=== PATIENT | female | born 1970 | race Caucasian/White ===

== ENCOUNTER 2020-12-24 06:25 | Day surgery (SDC) | payer OTHER ==
[~2020-12-24] VITALS: Ht 157.5 cm; Wt 69.1 kg
--- NOTE | ~2020-12-24 | OR ---
[facility] [address], [place] [address] Draft DATE OF OPERATION: 12/24/2020 SURGEON: Chi Kamara DO PREOPERATIVE DIAGNOSES: 1. Abnormal uterine bleeding. 2. Large uterine mass. POSTOPERATIVE DIAGNOSES: 1. Abnormal uterine bleeding. 2. Large enlarged uterine mass. 3. Endometrial polyps. PROCEDURES PERFORMED: 1. Dilation and curettage. 2. Hysteroscopic polypectomy. ANESTHESIA: General with LMA. ESTIMATED BLOOD LOSS: 30 mL. SPECIMENS: Endometrial curettings and endometrial polyp. FINDINGS: Normal external genitalia with no pelvic or inguinal lymphadenopathy or masses. Uterus grossly enlarged at the level of umbilicus with irregular contour. On hysteroscopy, normal appearing cervix and cervical canal. Uterine cavity distorted by myometrial mass within endometrium, scattered endometrial polyps, however, the myometrial mask was not able to be adequately biopsied. Hemostasis procedure. COMPLICATIONS: None. INDICATIONS: Ms. Sharma is a pleasant 50-year-old, G3, P3, premenopausal female, who presents with 3-year history of worsening abnormal uterine bleeding. She was initially treated with contraceptive patch by another physician with minimal improvement. Symptoms have PATIENT NAME: DELL SHARMA OPERATIVE REPORT DATE OF : 66 REPORT #: [id number] PHYSICIAN: CHI KAMARA DO PCP: YAKOV GARCIA MD REPORT IS CONFIDENTIAL AND NOT TO BE RELEASED WITHOUT AUTHORIZATION [facility] [address], [place] [address] Draft continued to worsen past several months. An ultrasound was performed that demonstrated enlarged uterus approximately 20 cm with concerning endometrial or uterine mass. The mass appears intracavitary. Recommended hysteroscopy and D and C. Risks, benefits, and alternatives were discussed in detail with the patient. The patient understands and wishes to proceed with the procedure. TECHNIQUE: The patient was taken to the operating room where a time-out was performed to confirm correct patient and correct procedure. General anesthesia was adequately established. The patient was prepped and draped in the dorsal lithotomy position with her feet in Yellofin stirrups. ICPs were on a running and no preoperative antibiotics or heparin were indicated. The patient was typed and screened preoperatively. Lili retractors were used to retract the vaginal epithelium and the anterior lip of the cervix was grasped with Allis clamp. The cervix was gently dilated using Hegar dilators and an operative hysteroscope was then placed under direct visualization. The cervical os then advanced under direct visualization into the uterine cavity. Endometrial cavity was confirmed by identifying bilateral tubal ostia. Thin endometrium with a few scattered endometrial polyps was identified. The uterine mass is not intracavitary and unable to be adequately biopsied. MyoSure Reach device was selected and endometrial polyps and endometrial curettings were performed. Fluid deficit was noted to be 1500 mL, but no concern for perforation. Decision was made to terminate the procedure. The hysteroscope was removed and Allis clamp was removed. Hemostasis was appreciated. The patient was then taken to the PACU in good and stable condition. Sponge, needle, and instrument counts were correct x2 at the end of the procedure. Final fluid deficit was 1180 mL. Chi Kamara DO JDW/MODL /[id number] Copies: PATIENT NAME: DELL SHARMA OPERATIVE REPORT DATE OF : 66 REPORT #: [id number] PHYSICIAN: CHI KAMARA DO PCP: YAKOV GARCIA MD REPORT IS CONFIDENTIAL AND NOT TO BE RELEASED WITHOUT AUTHORIZATION [address] [address] Draft ~ PATIENT NAME: DELL SHARMA OPERATIVE REPORT DATE OF : 66 REPORT #: [id number] PHYSICIAN: CHI KAMARA DO PCP: YAKOV GARCIA MD REPORT IS CONFIDENTIAL AND NOT TO BE RELEASED WITHOUT AUTHORIZATION
--- NOTE | ~2020-12-24 | OR ---
[facility] [address] [place], [place] [address] Cancelled DATE OF OPERATION: SURGEON: Chi Kamara DO DICTATION CANCELED. Chi Kamara DO JDLizzy/MODL /[id number] Copies: ~ PATIENT NAME: DELL SHARMA OPERATIVE REPORT DATE OF : 66 REPORT #: [id number] PHYSICIAN: CHI KAMARA DO PCP: YAKOV GARCIA MD REPORT IS CONFIDENTIAL AND NOT TO BE RELEASED WITHOUT AUTHORIZATION
[~2020-12-24 06:25] MED LIST: AMITRIPTYLINE H25 MG PO; FOLIC ACID0.8 MG PO; IRON325 M1 PO; VITAMIN B-121000 MCG PO; VITAMIN D325 MCG PO
--- NOTE | 2020-12-24 09:13 | NUR ---
12/24/20 0913 Sheets,Shaila 0905 PT ARRIVED TO PACU ON 8L VIA MASK, PT NONAROUSABLE AND VSS. RESP EVEN AND UNLABORED WITH ORAL AIRWAY IN PLACE.
--- NOTE | 2020-12-24 09:53 | NUR ---
PATIENT BACK TO ROOM FROM PACU ON . RECEIVED REPORT FROM MARIAN BARROSO. PATIENT IS DROWSY. VSS. DENIES PAIN AND NAUSEA. PATIENT HAS A SMALL AMOUNT OF RED DRAINAGE ON THE MADHURI PAD. PATINET IS COLD AND BEAR HUGGER TURNED ON. PROVIDED PATIENT WITH WATER, CRACKERS, AND PUDDING. CALL LIGHT WITHIN REACH.
--- NOTE | 2020-12-24 10:55 | NUR ---
PATIENT AWAKE AND SITTING ON THE SIDE OF THE BED. VSS. DENIES PAIN AND NUASEA. MADHURI PAD HAS SMALL AMOUNT OF RED DRAINAGE. AT BEDSIDE. PATIENT IS READY TO GO HOME. CALL TO DR. HAYES TO COME TALK WITH PATIENT REGARDING SURGICAL RESULTS.
--- NOTE | 2020-12-25 11:16 | PATH ---
[facility] [address] [place], [place] [address] Signed SPECIMEN(S): A ENDOMETRIAL CURETTINGS AND POLYP SPECIMEN SOURCE: A. ENDOMETRIAL CURETTINGS AND POLYP CLINICAL HISTORY: Hysteroscopy DC. Abnormal uterine bleeding, uterine mass. FINAL PATHOLOGIC DIAGNOSIS: Endometrium, curettage: - Benign endometrial polyp. - Background inactive endometrium. - No hyperplasia or neoplasia identified. BRP:cml:C2NR MICROSCOPIC EXAMINATION: Histologic sections of all submitted blocks are examined by light microscopy. These findings, together with the gross examination, support the pathologic diagnosis. GROSS DESCRIPTION: The specimen, labeled "EM, A," and designated on the requisition "endometrial curettings and polyp," is received in formalin and consists of puentes-pink soft tissue fragments with mucus and clot material measuring 3.0 x 2.3 x 0.5 cm in aggregate. Specimen is filtered and entirely submitted in cassette (A1). AT (under the direct supervision of a pathologist) The Gross Description was prepared using a voice recognition system. The report was reviewed for accuracy; however, sound-alike word errors, addition and/or deletions may occur. If there is any question about this report, please contact Client Services. PERFORMING LABORATORY: The technical component was performed by [facility], [address] [place] [id number] (Inclined Railway Operator: Bridget Villegas MD; CLIA# [id number]). [facility], [address] [address] (CLIA# [id number]). Diagnostician: Arpan Gray MD Pathologist PATIENT NAME: DELL SHARMA PATHOLOGY DATE OF : [birth year] REPORT #: [id number] PHYSICIAN: [facility] PATHOLOG[facility] PCP: YAKOV GARCIA MD REPORT IS CONFIDENTIAL AND NOT TO BE RELEASED WITHOUT AUTHORIZATION [address] [address] Signed Electronically Signed 12/25/2020 Copies: ~ PATIENT NAME: DELL SHARAM PATHOLOGY DATE OF : 66 REPORT #: [id number] PHYSICIAN: [facility] PCP: YAKOV GARCIA MD REPORT IS CONFIDENTIAL AND NOT TO BE RELEASED WITHOUT AUTHORIZATION
== END 2020-12-24 11:25 | disposition home or self-care (01) ==
LOC: OPS 06:25 → DS 06:25 → OPS 09:00 → DS 09:15 → OPS 10:45
PROVIDERS: ATTEND Obstetrics & Gynecology
PROC: 0UDB7ZX Extraction of Endometrium, Via Natural or Artificial Opening, Diagnostic (ICD-10-PCS; 2020-12-24)
PROC: 0UB98ZX Excision of Uterus, Via Natural or Artificial Opening Endoscopic, Diagnostic (ICD-10-PCS; principal; 2020-12-24 09:00)
DX: N84.0 Polyp of corpus uteri (principal); G43.909 Migraine, unspecified, not intractable, without status migrainosus; E78.5 Hyperlipidemia, unspecified; Z88.6 Allergy status to analgesic agent; Z88.1 Allergy status to other antibiotic agents; Z88.0 Allergy status to penicillin
CPT/HCPCS: J1100; J2001; J2405; J2704; J3010; J7121

== ENCOUNTER 2021-01-20 08:55 | Inpatient (IN) | payer OTHER ==
[~2021-01-20] VITALS: Ht 157.5 cm; Wt 73.0 kg
--- NOTE | ~2021-01-20 | OR ---
[facility] [address] [place], [place] [address] Draft DATE OF OPERATION: 01/21/2021 SURGEON: Chi Kamara DO PREOPERATIVE DIAGNOSES: 1. Abnormal uterine bleeding. 2. Large fibroid uterus. POSTOPERATIVE DIAGNOSES: 1. Abnormal uterine bleeding. 2. Large fibroid uterus. 3. Significant abdominal and pelvic adhesions. 4. Endometriosis of the uterosacral ligaments bilaterally. PROCEDURES PERFORMED: 1. Total abdominal hysterectomy of a large uterus with multiple fibroids. 2. Bilateral salpingectomy. 3. Cystoscopy. 4. Diagnostic laparoscopy. 5. Extensive lysis of adhesions. ANESTHESIA: General. LIBRARY HELPER: Bryan Rubin MD ESTIMATED BLOOD LOSS: 1000 mL. COMPLICATIONS: None. DRAINS: Velasquez to dependent drainage. FINDINGS: Normal external genitalia with normal clitoris, urethral meatus bilateral Crocker's, and Bartholin's. Normal-appearing cervix. Large multifibroid uterus with the fundus just above the umbilicus with significant pelvic adhesions and endometriosis on diagnostic PATIENT NAME: DELL SHARMA OPERATIVE REPORT DATE OF : 66 REPORT #: [id number] PHYSICIAN: CHI KAMARA DO PCP: YAKOV GARCIA MD REPORT IS CONFIDENTIAL AND NOT TO BE RELEASED WITHOUT AUTHORIZATION [facility] [address], [place] [address] Draft laparoscopy. On laparotomy, again large multifibroid uterus, hemostatic at the end of the procedure. Normal bilateral ovaries. On cystoscopy, normal bladder dome and bilateral ureteral jets. There was a small bladder polyp in the midportion of the bladder that is benign appearing. INDICATIONS: Ms. Sharma is a pleasant 50-year-old female, who presented with abnormal uterine bleeding and multifibroid uterus at the umbilicus. The patient underwent hysteroscopy, D and C that demonstrated benign endometrium on her Pap smears. The patient was consented for hysterectomy either total laparoscopic hysterectomy with ExCITE technique or total abdominal hysterectomy, bilateral salpingectomy and cystoscopy. Risks, benefits, and alternatives were discussed in detail with the patient. The patient understands and wished to proceed with the procedure. DESCRIPTION OF PROCEDURE: The patient was taken to the operating room where a time-out was performed to confirm correct procedure and correct patient. General anesthesia was adequately established. The patient was prepped and draped in dorsal lithotomy position with her feet in Yellofin stirrups. A Velasquez catheter was inserted and the cervix was grasped with long Allis clamp and a uterine manipulator was placed without difficulty. The surgeon's gloves were changed. Attention was turned to the abdomen. 2 cm below the umbilicus was infiltrated with 0.25% Marcaine with epinephrine and a 4 cm curvilinear incision was made. The fascia was grasped with hemostats, elevated and entered sharply with the Metzenbaum scissors. The superior and inferior edge of the fascia was tagged with 0 Vicryl and the rectus and peritoneum were divided bluntly. Omental adhesions were palpated, but a clear space was able to be made and a Lindy port was placed without difficulty. Insufflation of the abdomen was performed and survey of the abdomen and pelvis was performed. A 5 mm assist port was placed in the left lower quadrant under direct visualization without complication. An 8 mm expanding port was placed in the right lower quadrant under direct visualization without complication. Evaluation for feasibility of total laparoscopic was then performed. The uterus was large, filling the entire pelvis wall to wall and anterior to posterior. The upper pedicles were able to be evaluated despite some omental adhesions. The bladder appeared densely scarred to the lower uterine segment given the patient's history of multiple deliveries. Large fibroids were located low and lateral precluding access with straight stick laparoscopy to uterine vasculature. It was determined that this was not practical to attempt a total laparoscopic hysterectomy utilizing the ExCITE technique and laparoscopy was abandoned. The trocars were removed. Insufflation was reduced and the patient was prepared for total abdominal hysterectomy. The uterine manipulator was also removed. A midline incision was made using a surgical scalpel from the pubic symphysis to the infraumbilical incision and then carried just superior to the umbilicus. Subcu was divided using Bovie electrocautery and the fascia was incised using a surgical scalpel. PATIENT NAME: DELL SHARMA OPERATIVE REPORT DATE OF : 66 REPORT #: [id number] PHYSICIAN: CHI KAMARA DO PCP: YAKOV GARCIA MD REPORT IS CONFIDENTIAL AND NOT TO BE RELEASED WITHOUT AUTHORIZATION [facility] [address] [place] [address] Draft Fascial incision was extended cephalad caudad using Metzenbaum scissors. Rectus was then divided in the midline using blunt dissection. The peritoneum was entered sharply and peritoneal incision was extended cephalad caudad using sharp dissection. The uterus was unable to be elevated up and out of the abdomen due to severe adhesions. Omental adhesions on the anterior abdominal wall were taken down with clamping, dividing, and tying each adhesive location with excellent hemostasis and resolution of omental adhesions. Attention was then turned to hysterectomy. The round ligament on the right was doubly clamped and divided using Metzenbaum scissors and the round ligament was suture ligated with excellent hemostasis. The utero-ovarian ligament on the right was then doubly clamped and cut, and suture ligated with 0 Vicryl with good hemostasis. The anterior leaf of the broad ligament was then divided using Metzenbaum scissors down to the adhesions over the anterior lower uterine segment. The posterior edge of the broad ligament was then divided using Metzenbaum scissors to the angle of the uterosacral ligament. The uterine pedicles were then serially clamped, cut, and ligated on the right down to the uterine vessels. At this point, attention was turned to the left. The round ligament was clamped, cut, and suture ligated, and the leaves of the broad ligament were taken down using Metzenbaum scissors. Again, dense scarring was noted over the lower uterine segment. However, careful dissection with combination of blunt and sharp dissection, I was able to free up this scar tissue from the lower uterine segment and the bladder was able to be pushed down below the cervix. The posterior leaf of the broad ligament was divided using Metzenbaum scissors. The uterine pedicles on the left were then serially clamped, cut, and ligated with excellent hemostasis including the uterine vessels. Uterine vessels on the right were then clamped, cut, and ligated with hemostasis. Myomectomy of several uterine fibroids had previously been performed once laparotomy was completed in order to debulk the uterus and allow access to these pedicles. The cervix was then doubly clamped and amputated using Huy scissors. The course of the ureter had been carefully monitored bilaterally throughout the case and found to be well away from our pedicles. The uterosacral ligaments were then incorporated into the cuff using 0 Vicryl suture bilaterally. The midportion of the cuff was then closed and made hemostatic with two figure of eight of 0 Vicryl suture. The pelvis was then irrigated. Some oozing was noted from the utero-ovarian ligament on the left. This was made hemostatic with suture ligation of the ligament. There was some oozing from the left peritoneal surface of the pelvic sidewall. The course of the ureter was followed and found to be well away from this oozing site and this was made hemostatic by grasping with a right angle clamp and ligating with a free tie with excellent hemostasis appreciated. The pelvis was again irrigated and now found to be hemostatic. Tisseel was applied to the pedicles, the cuff and to the raw peritoneal surface. The abdomen was cleared of any remaining clot and copiously irrigated. The peritoneum was then reapproximated using 2-0 Vicryl in a running nonlocked manner. The rectus muscle was reapproximated using 0 Vicryl in several interrupted sutures. Fascia was then reapproximated using 0 PDS in a running nonlocked manner with interrupted sutures of 0 Vicryl every several throws to reinforce PATIENT NAME: DELL SHARMA OPERATIVE REPORT DATE OF : 66 REPORT #: [id number] PHYSICIAN: CHI KAMARA DO PCP: YAKOV GARCIA MD REPORT IS CONFIDENTIAL AND NOT TO BE RELEASED WITHOUT AUTHORIZATION [address] [address] Draft the fascia. Subcu was reapproximated using 3-0 Vicryl in a running nonlocked manner. Skin was then reapproximated using surgical fredy. Attention was then turned to the cystoscopy. The Velasquez catheter was removed and a 70-degree cystoscope was placed in the urethral meatus and advanced under direct visualization into the bladder. Normal bladder dome and bilateral ureteral jets were appreciated. There was a small polyp in the posterior wall of the bladder that was evaluated and pictures were taken. This will be reviewed with our urologist, Dr. Maldonado for appropriate postoperative followup. The Velasquez catheter was reinserted and the laparoscopic ports were sutured with 4-0 Monocryl with excellent reapproximation and hemostasis. The patient was then taken to the PACU in good and stable condition. Sponge, needle, and instrument count were correct x2 at the end of the procedure. Dr. Rubin was present and participated in all portions of the procedure. Chi Kamraa DO JDW/MODL /[id number] Copies: ~ PATIENT NAME: DELL SHARMA OPERATIVE REPORT DATE OF : 66 REPORT #: [id number] PHYSICIAN: CHI KAMARA DO PCP: YAKOV GARCIA MD REPORT IS CONFIDENTIAL AND NOT TO BE RELEASED WITHOUT AUTHORIZATION
--- NOTE | 2021-01-21 10:19 | NUR ---
MD AND OPEN PIT QUARRY SUPERVISOR TALKED WITH PT. RX GIVEN TO PT TO TAKE TO PHARMACY. PT RESTING IN BED WAITING FOR OR AND AT BEDSIDE.
--- NOTE | 2021-01-21 14:34 | NUR ---
01/21/21 1434 Mariia Macedo 1415 - PT RECIEVE TO PACU. BALDERAS IN PLACE TO GRAVITY. PT PT RESPIRATIONS EVEN AND UNLABORED. PT NORMAL SINUS ON THE MONITOR WITH NO ECTOPY. 1412 - PT OPEN EYES ANF ABLE TO ANSWER SIMPLE QUESTIONS. SHE IS DROWSY. RESPIRATIONS EVEN AND UNLABORED.
--- NOTE | 2021-01-21 15:15 | NUR ---
PT ARRIVED TO THE UNIT, REPORT RECEIVED FROM Alexys APODACA RN PT TIRED BUT ARROUSABLE, VITAL SIGNS WNL, SURGICAL INCISION DRESSING DRY AND INTACT, ICE PACK PLACED OVER DRESSING, IS AT BEDSIDE GOAL NOT MET AT THIS TIME, ENCOURAGED USE, SCD BILATERAL LOWER EXTREMITIES IN PLACE. PT DENIES NEEDS AT THIS TIME.
--- NOTE | 2021-01-21 17:16 | NUR ---
PT RESTING IN BED, VITAL SIGNS WNL, LR RUNNING AT 125ML/HR, IS AT BEDSIDE, PT STATES NAUSEA IS BETTER AFTER RECEIVING MEDICATION, PT DENIES DIZZINESS OR NEEDS AT THIS TIME.
--- NOTE | 2021-01-21 18:10 | NUR ---
DR HAYES AT PT BEDSIDE VISITING PT, PLAN FOR DISCHARGE ON MONDAY, PT DENIES QUESTIONS OR CONCERNS, PT REPORTS PAIN AT A TOLERABLE LEVEL.
--- NOTE | 2021-01-21 18:16 | NUR ---
PT SLEEPING IN BED, DINNER ORDER PLACED, LR RUNNING AT 125ML/HR, IS AT BEDSIDE, VITAL SIGNS WNL, PT DENIES NAUSEA, DIZZINESS, OR NEEDS AT THIS TIME.
--- NOTE | 2021-01-21 18:36 | NUR ---
PT SAT UP IN BED, TOLERATED WELL, DINNER DELIVERED, PT WATCHING TV WHILE EATING DINNER, PT UPDATED ON PLAN FOR NEXT VITAL SIGNS AND REPORT FOR MANUFACTURING SCHEDULER. PT DENIES NAUSEA, DIZZINESS, OR NEEDS AT THIS TIME.
--- NOTE | 2021-01-21 19:05 | NUR ---
PT REPORT GIVEN TO Marifer YOON RN. PT FINISHED EATING DINNER, PT DENIES N/V, DIZZINESS, OR NEEDS AT THIS TIME.
--- NOTE | 2021-01-22 00:41 | NUR ---
0000-per Adrienne Ervin RN. RN enters room pt awake watching TV. VS's taken, pt remains tachycardic. Assessment negative, IS to 1100. ABD dressing CDI. PT up OOB, keturah-cath care completed. Vaginal bleeding scant, gown changed, assisted pt back to bed. Pt tolerated activity well, pain sl. increased w/ activity, medication given. FC draining light yellow urine and SCD's in place. Will continue to monitor.
--- NOTE | 2021-01-22 07:00 | NUR ---
THIS RN RECEIVED REPORT FROM RN'S ON [facility]- PT TO BE TRANSFERRED TO [facility] AT SHIFT CHANGE. ALL QUESTIONS ANSWERED.
--- NOTE | 2021-01-22 07:25 | NUR ---
Bedside report complete at 0725, report given to Kwasi Wolfe RN. Pt transfered in Med Surg bed, to Med Surg room 109 by Kwasi Wolfe RN
--- NOTE | 2021-01-22 07:25 | NUR ---
PT TRANSFERRED FROM [facility] TO [facility] AT THIS TIME.
--- NOTE | 2021-01-22 07:30 | NUR ---
PT TRANSFERED TO ROOM 109 BY THIS RN. PT TOLERATED TRANSFER WELL. IV FLUIDS CONTINUE INFUSING. PT ON PHONE WITH HER UPDATING HIM ON PLAN OF CARE. NO ADDITIONAL REQUESTS OR COMPLAINTS. CALL LIGHT WITHIN REACH. BED RAILS UP.
--- NOTE | 2021-01-22 07:38 | NUR ---
DR. HAYES TO BEDSIDE TO TO ROUND WITH PT. PTS PRIMARY RN UPDATED AND TO ROOM TO VISIT WITH DR. HAYES AND PT.
--- NOTE | 2021-01-22 07:40 | NUR ---
THIS RN IN PTS ROOM WITH TO CORY ON PT. THIS RN TO CHANGE DRESSINGS DUE TO ANDRÉS AND PER VERBAL ORDER FROM MD. THIS RN REAPPLIED NONADHERENT GAUZE AND SECRURED WITH TAPE AT THIS TIME. PT TOLERATED WELL. SLIGHT BRUISING NOTED AROUND MIDLINE INSISION SITES. PT STATES THAT SHE NEEDS NOTHING FURTHER AT THIS TIME. PT SALINE LOCKED PER VERBAL ORDER FROM AND SHERRIE TO COME OUT THIS AM.
[2021-01-22] MEDS ORDERED: FOLIC ACID1 MG PO (08:02)
[2021-01-22] MEDS ORDERED: DIALYVITE VI1250 MCG PO (08:05)
--- NOTE | 2021-01-22 09:30 | NUR ---
Spoke with pt. States she has some pain. Tired. Plans on dc to home tomorrow spouse will assist her. Pt does not use DME. Is active and works at [employer]. Denies needs for home.
--- NOTE | 2021-01-22 09:36 | NUR ---
MED REC COMPLETED BY PHARMACY
--- NOTE | 2021-01-22 09:55 | NUR ---
THIS RN IN PTS ROOM TO GIVE PT MORNING MEDS, PT REQUESTING PAIN MEDS AT THIS TIME FOR PAIN NOTED AT 8. PT STATES THAT OTHERWISE SHE IS DOING WELL. THIS RN WILL RETURN SOON TO REMOVE BALDERAS CATH. PT STATES THAT OTHERWISE SHE IS DOING WELL. PTS AT BESIDE AT THIS TIME
--- NOTE | 2021-01-22 10:30 | NUR ---
THIS RN IN PTS ROOM TO CHECK ON PT AND DO VITALS AND TAKE OUT BALDERAS. PT TOLERATED WELL. PT WAS ABLE TO VOID SHORTLY AFTER REMOVING BALDERAS AND DID MADHURI CARE ON HERSELF, CHANGE PAD. OLD PAD NOTED TO HAVE SMALL OUT OF DARK/ BROWN BLOOD. PT ABLE TO AMBULATE TO RESTROOM WELL WITH MINOR ASSIST. PT WAS GIVEN PAIN MEDS ABOUT 45MINS PRIOR AND PT STATES THAT SHE FEELS THEM WORKING, PAIN IS BETTER.
--- NOTE | 2021-01-22 11:55 | NUR ---
FISH AND WILDLIFE BIOLOGIST REQUESTED I LET PT SLEEP. WILL FOLLOW NEEDED
--- NOTE | 2021-01-22 12:15 | NUR ---
this rn in pts room to give pt midday meds. pt tolerated well and had no other compliants at this time. pt has a good appetite.
--- NOTE | 2021-01-22 13:58 | NUR ---
pt assisted back to bed from bathroom. pt is tearful. pain assessed. pt reproting 10/10 abdominal pain. scheduled motrin and 1 tab percocet admsitnered. ice pack refreshed. pt with no further needs. call light in reach
--- NOTE | 2021-01-22 15:20 | NUR ---
this rn in pts room due to pt calling stating that she was having increased pain again when coming back from the restroom. this rn asked wehre pts pain ws located, pt states that pain is in right upper quadrant. this rn encouraged pt to get up and walk in the halls due to this sounding like gas pain. pt compliant with trying this treatment. pt able to do one lap of the halls and back to room in bed- pt reports nausea but her pain has subsided. this rn provided pt with 4mg zofran and 1 more percocet. pt states needing nothing else at this time.
--- NOTE | 2021-01-22 17:30 | NUR ---
THIS RN IN PTS ROOM TO GIVE PT HER EVENING MEDS. THIS RN ASKED HOW PT IS DOING. PT REPORTS THAT SHE WENT TO THE RESTROOM AND VOMITED IN THE TRASH, UNKNOWN AMOUNT BUT THER IS A NOTABLE AMOUNT. PT STATES THAT SHE IS FEELING BETTER AND NO INCREASE IN PAIN. VITALS TAKEN, ALL WNL. PT STATES THAT SHE NEEDS NOTHING ELSE AT THIS TIME.
--- NOTE | 2021-01-22 18:24 | NUR ---
PROVIDED PT WITH GUM PER VERBAL ORDER FROM MD. PT STATES THAT THIS IS HELPING. PTS AT BEDSIDE WITH PTS EMOTIONAL SUPPORT DOG
--- NOTE | 2021-01-22 19:35 | NUR ---
SHIFT REPORT RECEIVED FROM DAYSHIFT DHARMESH DANIELS AT BEDSIDE. pt AWAKE AND RESTING IN BED, DROWSY BUT AWOKE TO VOICE. ABD DRESSING C/D/I, RECENTLY GIVEN PRN NAUSEA MEDICATION. IV SITE WNL, SALINE LOCKED. NO FURTHER NEEDS, CALL LIGHT IN REACH.
--- NOTE | 2021-01-22 20:10 | NUR ---
IN TO GET VITALS, PT IS C/O NAUSA, NO EMESIS, HR ELEVATED, 130's, RN HAS BEEN INFORMED, NO FURTHER NEEDS AT THIS TIME
--- NOTE | 2021-01-22 20:39 | NUR ---
IN ROOM TO ASSIST PT BACK TO BED. PROVIDED FRESH ICEPACK AND FRESH ICEWATER. PT DRY HEAVED INTO GARBAGE CAN WHILE SITTING ON TOILET. PT STATES SHE IS HAVING PAIN BUT IS AFRAID TO TAKE PAIN MEDS WHILE NAUSEOUS. EBONY BARROSO WILL BE BACK WHEN SHE CAN HAVE NEXT DOSE OF ZOFRAN. PT DENIES FURTHER NEEDS. CALL LIGHT IS CLOSE.
--- NOTE | 2021-01-22 21:15 | NUR ---
ASSISTED PT BACK FROM THE TOILET, IN BED, ICE PACK FOR BELLY, SCDS IN PLACE, RN IN , VITALS CHECKED, BP/HR, NO FURTHER NEEDS AT THIS TIME
--- NOTE | 2021-01-22 21:20 | NUR ---
HR ELEVATE- 120'S TO 130, pt RESTING IN BED, SBA TO BATHROOM TO VOID. UNMEASURED EMESIS, SMALL AMOUNT NOTED. pt SBA BACK TO BED, PRN ZOFRAN AND PRN IV PAIN MEDICATION GIVEN, SEE EMAR. WILL CONTINUE TO MONITOR HR AFTER ADMINISTRATION OF BOTH PAIN AND NAUSEA MEDICATION, COUNTRY SALES MANAGERDHARMESH MACK UPDATED. pt BACK IN BED, SCD'S IN PLACE.
--- NOTE | 2021-01-22 22:30 | NUR ---
pt RESTING IN BED WITH EYES CLOSED, RR EVEN AND UNLABORED. NO DISTRESS NOTED, CALL LIGHT IN REACH.
--- NOTE | 2021-01-22 23:10 | NUR ---
IN ROOM TO ASSESS VS, HR 126, BP 139/88, MAP OF 99. SPO2 88% ON RA, 1LNC IN PLACE, SPO2 SUSTAINING IN MID 90'S. pt REPORTS NAUSEA RESOLVED, PAIN IMPROVED. pt RESTING COMFORTABLY IN BED WITH EYES CLOSED, RR EVEN AND UNLABORED. pt AWAKES TO VOICE. DR HAYES ON PHONE AND UPDATED HIM ON pt INCLUDING VS TRENDS THIS SHIFT. PER MD, HR OKAY IN 120'S TO 130 LONG pt "LOOKS GOOD". TELEPHONE ORDERS READ BACK FOR AM CBC. NO ADDITIONAL ORDERS RECEIVED AT THIS TIME.
--- NOTE | 2021-01-23 02:00 | NUR ---
CALL LIGHT ON, PT UP TO VOID, BACK TO BED, VITALS DONE, NEW ICEPACK AND 7UP PROVIDED, SCDS IN PLACE, NO FURTHER NEEDS
--- NOTE | 2021-01-23 02:16 | NUR ---
pt RESTING IN BED WITH EYES OPEN, RECENTLY UP TO VOID WITH PACK WORKER. HR REMAINS ELEVATED, BUT IMPROVING-122BPM. pt REPORTS PAIN IS IMPROVED AND CURRENTLY 4/10 AND TOLERABLE. DENIES NAUSEA. SCD'S REMAIN ON, NO ACUTE CHANGES TO ASSESSEMENT. WARM BLANKET PROVIDED. CALL LIGHT IN REACH.
--- NOTE | 2021-01-23 03:51 | NUR ---
ADMINISTERED ZOFRAN FOR NAUSEA AND DILALUDID FOR 7/10 PAIN. PT STATES SHE FELT "SICKER" AFTER DILAUDID GIVEN, IV DILUTED SLOW PUSH. INSTRUCTED PT TO CALL IF NAUSEA PERSITS. PT DENIES FURTHER NEEDS AT THIS TIME. CALL LIGHT IS CLOSE.
--- NOTE | 2021-01-23 05:26 | NUR ---
pt HAD DIFFICULTY WITH PAIN AND NAUSEA CONTROL AT START OF SHIFT. IV BREAKTHROUGH PAIN MEDICATION GIVEN X2, NAUSEA MEDICATION ALSO PROVIDED X2. pt DECLINED EVENING PO MEDS D/T NAUSEA. VSS, HR IS ELEVATED 120'S. MD MADE AWARE AT START OF SHIFT, CBC ADDED TO MORNING LABS. NO ADDITIONAL ORDERS. pt SBA WITH AMBULATION, CALLS APPROPRIATELY. IV SALINE LOCKED, WNL. 1LNC AT TIMES WHEN SLEEPING D/T IV PAIN MEDICATION. pt ON REGULAR DIET, BOWEL TONES ACTIVE. DRANK SOME WATER/SPRITE. 50MLS ALONG WITH UNMEASURED X1 EMESIS THIS SHIFT.
--- NOTE | 2021-01-23 05:39 | NUR ---
pt REPORTS NAUSEA RESOLVED, RATES ABD PAIN 4/10. PO SCHEDULED MOTRIN GIVEN ALONG WITH JELLO. NO FURTHER NEEDS, CALL LIGHT IN REACH.
--- NOTE | 2021-01-23 07:20 | NUR ---
Report received from Ruby BARROSO. Pt resting in bed with eyes closed, respirations even and unlabored. No needs at this time. Will continue plan of care.
--- NOTE | 2021-01-23 08:04 | NUR ---
PT AWAKE IN ROOM. WHITE BOARD UPDATED. AM CARE REFUSED, BREAKFAST ORDER REFUSED. DHARMESH SALGUERO NOTIFIED. CALL LIGHT WITHIN REACH. NO FURTHER NEEDS AT THIS TIME.
--- NOTE | 2021-01-23 08:05 | NUR ---
Scheduled medications administered. Pt resting in bed watching tv. She reports that her pain and nausea have improved and no symptoms at this time. Assessment WNL, dressing to ABD incision C/D/I. HR regular, noted to be 125, pt states her heartrate is "normal for her and can't tell a difference", nightshift RN reported Dr Kamara notified for tachycardia throughout hospitalization. Ice water refilled. pt has no further needs
--- NOTE | 2021-01-23 13:24 | NUR ---
Medications administered, pt refuses lovenox injection, states feeling nauseated, PRN zofran administered. She states she is "not in any pain, just feels gross". Pt able to drink 7up and popsicles provided.
[2021-01-23] MEDS ORDERED: IBU800 MG PO (15:11)
[2021-01-23] MEDS ORDERED: HYDROCODON-ACE1 EA10 PO (15:13)
--- NOTE | 2021-01-23 15:25 | NUR ---
Discharge teaching provided to patient and her who verbalize understanding and have no questions. IV removed WNL. VSS, A+0, pt dresses self. All belongings returned. Pt stable and has no needs.
--- NOTE | 2021-01-28 11:06 | PATH ---
[facility] [address], [place] [address] Signed SPECIMEN(S): A UTERUS, CERVIX, FIBROIDS, BILAT FALLOPIAN TUBES SPECIMEN SOURCE: A. UTERUS, CERVIX, FIBROIDS, BILAT FALLOPIAN TUBES CLINICAL HISTORY: Abnormal uterine bleeding; uterine mass. FINAL PATHOLOGIC DIAGNOSIS: Cervix, uterus, fibroids and bilateral fallopian tubes, hysterectomy and bilateral salpingectomy: - Cervix: - Benign squamous epithelium and endocervix with some Nabothian cysts. - Negative for dysplasia. - Endomyometrium: - Leiomyomas (up to 8.6 cm in greatest dimension) with hemorrhage, focal calcification, some degenerative necrosis, and reactive cytologic atypia; see comment. - Benign inactive endometrium - Negative for hyperplasia and atypia. - Bilateral fallopian tubes: - Benign fimbriated fallopian tubes with focus of endometriosis. COMMENT: Histologic sections of the leiomyomatous areas show some unusual hypercellularity, reactive cytologic atypia, calcification, and focal degenerative necrosis. No evidence of significantly increased mitotic figures or tumor necrosis was seen. Due to the unusual morphology and atypical clinical history, multiple additional sections were taken of the myometrial nodules. These sections are felt to be best medical office representative of a leiomyomatous process and do not appear suspicious for malignancy. As part of [facility] Quality Improvement Program, this case was reviewed by another member of our pathology staff. DDF:NRBlayne:GRIS:cml:C2NR MICROSCOPIC EXAMINATION: Histologic sections of all submitted blocks are examined by light microscopy. These findings, together with the gross examination, support the pathologic diagnosis. PATIENT NAME: RAQUEL SHARMA PATHOLOGY DATE OF : 66 REPORT #: [id number] PHYSICIAN: DEWAYNE PATHOLOGY PCP: YAKOV GARCIA MD REPORT IS CONFIDENTIAL AND NOT TO BE RELEASED WITHOUT AUTHORIZATION [facility] [address], [place] [address] Signed GROSS DESCRIPTION: The specimen, labeled "Raquel Sharma," and designated on the requisition "cervix, uterus, and fibroids and bilateral fallopian tubes," is received in formalin and consists of a 1022 gram uterus and cervix were fallopian tubes. The uterus is 9.5 x 10.0 x 15.7 cm (cornu-cornu x anterior-posterior x fundus-ectocervix). The serosal surface is pink and focally congested with multiple subserosal nodules that range in size or 0.4 cm up to 1.8 cm in greatest dimension. One subserosal nodule has a yellow-rutledge friable cut surface. A small rim of ectocervical mucosa is present measuring 0.7 x 0.2 cm and is pale pink and smooth. Serial sectioning of the cervix fails to demonstrate any gross abnormalities. The irregular shaped endometrial cavity is lined by pink focally congested endometrium that has an average thickness of 0.1 cm. Sectioning through the uterus reveals a pink moderately trabeculated myometrium with multiple intramural nodules that range in size from 0.2 cm up to 8.6 x 7.5 x 7.5 cm. The largest is focally hemorrhagic with a whorled cut surface. The first fallopian tube is 5.7 x 0.7 cm, with delicate fimbriae. The serosa is violaceous and smooth. Cut sections reveal a pinpoint lumen. The second fallopian tube is 2.4 x 0.8 cm, with delicate fimbriae. The serosa is violaceous and smooth and inked. Cut sections reveal a pinpoint lumen. Separate within the container are two pink well-circumscribed nodule that have a combined weight of 80 g and measure 2.5 x 2.0 x 2.0 cm and 6.4 x 5.2 x 4.8 cm. Sectioning through the nodules reveal [facility] sections are submitted in 14 cassettes. Cassette summary: (A1) first fallopian tube (A2) second fallopian tube (A3) cervix (A4) uterine wall (A5-A6) smaller intramural nodules (A7) subserosal nodule with yellow-rutledge discoloration (A8-A9) nodule separate within the container (A10-A14) largest intramural nodule FB (under the direct supervision of a pathologist) Per request by Dr. Camacho, 10 additional cassettes and the myometrial nodules are submitted (A15-A24). AI 02/05/21, 1:54 PM The Gross Description was prepared using a voice recognition system. The report PATIENT NAME: RAQUEL SHARMA PATHOLOGY DATE OF : 66 REPORT #: [id number] PHYSICIAN: DEWAYNE PATHOLOGY PCP: YAKOV GARCIA MD REPORT IS CONFIDENTIAL AND NOT TO BE RELEASED WITHOUT AUTHORIZATION [facility] [address] [place] [id number] Signed was reviewed for accuracy; however, sound-alike word errors, addition and/or deletions may occur. If there is any question about this report, please contact Client Services. PERFORMING LABORATORY: The technical component was performed by [facility], [address] [place] [id number] (Electrical Intern: Bridget Villegas MD; CLIA# [id number]). [facility] [place] [id number] (CLIA# [id number]). Diagnostician: Dusty Camacho DO Pathologist Electronically Signed 01/28/2021 Copies: ~ PATIENT NAME: RAQUEL SHARMA PATHOLOGY DATE OF : 66 REPORT #: [id number] PHYSICIAN: DEWAYNE FLORES PCP: YAKOV GARCIA MD REPORT IS CONFIDENTIAL AND NOT TO BE RELEASED WITHOUT AUTHORIZATION
== END 2021-01-23 15:27 | disposition home or self-care (01) | DRG 743 ==
LOC: MS 01-21 06:40 → OPS 01-21 06:40 → DS 01-21 06:40 → EDSTATUS 01-21 09:15 → DS 01-21 09:15 → OPS 01-21 09:15 → FBC 01-21 15:04 → DS 01-21 15:04 → FBC 01-22 07:28 → MS 01-22 07:28
PROVIDERS: ADMIT Obstetrics & Gynecology; ATTEND Obstetrics & Gynecology
PROC: 0UT94ZZ Resection of Uterus, Percutaneous Endoscopic Approach (ICD-10-PCS; principal; 2021-01-21 09:15)
PROC: 0UT74ZZ Resection of Bilateral Fallopian Tubes, Percutaneous Endoscopic Approach (ICD-10-PCS; 2021-01-21 09:15)
PROC: 0DNU4ZZ Release Omentum, Percutaneous Endoscopic Approach (ICD-10-PCS; 2021-01-21 09:15)
PROC: 3E0T3BZ Introduction of Anesthetic Agent into Peripheral Nerves and Plexi, Percutaneous Approach (ICD-10-PCS; 2021-01-21 09:15)
DX: D25.9 Leiomyoma of uterus, unspecified (principal); N80.0 Endometriosis of uterus; Z88.0 Allergy status to penicillin; Z88.6 Allergy status to analgesic agent; Z88.1 Allergy status to other antibiotic agents; Z79.899 Other long term (current) drug therapy; D64.9 Anemia, unspecified; E78.5 Hyperlipidemia, unspecified; E55.9 Vitamin D deficiency, unspecified; G43.009 Migraine without aura, not intractable, without status migrainosus; Z98.890 Other specified postprocedural states; K66.0 Peritoneal adhesions (postprocedural) (postinfection); R00.0 Tachycardia, unspecified
CPT/HCPCS: 00840; 64448; 76942; 85025; 85027; A9270; J0131; J0690; J1100; J1170; J1644; J1650; J1885; J2405; J2550; J2704; J2795; J3010; J3475; J7121

== ENCOUNTER 2024-12-21 17:25 | Emergency (ER) | payer OTHER ==
[~2024-12-21] VITALS: Ht 157.5 cm; Wt 89.0 kg
[~2024-12-21 17:25] MED LIST changes: +DIALYVITE VI1250 MCG PO; +FOLIC ACID1 MG PO; +HYDROCODON-ACE1 EA10 PO; +IBU800 MG PO
[2024-12-21 19:39] VITALS: BP 135/73
== END 2024-12-21 19:41 | disposition home or self-care (01) ==
LOC: ED 17:25
DX: S43.401A Unspecified sprain of right shoulder joint, initial encounter (principal); Z88.0 Allergy status to penicillin; Z79.82 Long term (current) use of aspirin; Z79.899 Other long term (current) drug therapy; W01.10XA Fall on same level from slipping, tripping and stumbling with subsequent striking against unspecified object, initial encounter
CPT/HCPCS: 73030; 73110; 99283